=== PATIENT | female | born 1995 | race Caucasian/White ===

== ENCOUNTER 2016-09-16 06:11 | Emergency (ER) | payer MEDICAID, OTHER ==
[~2016-09-16] VITALS: Ht 162.6 cm; Wt 98.9 kg
[2016-09-16 06:20] VITALS: BP_SYST 135
--- NOTE | 2016-09-16 06:20 | NUR ---
Patient to ER bed 7 to gown for evaluation. Side rails up. Report given to BIANKA FREED.
--- NOTE | 2016-09-16 06:30 | NUR ---
Patient is stable in bedside. Patient is having vaginal bleeding today, burning with urination and abdominal pressure in the umbilical region. Pain 5/10. Patient states that she is 12 weeks . No other complaints/injuries per patient or as noted.
--- NOTE | 2016-09-16 07:17 | NUR ---
Patient endorsed to BIANKA Valdez
[2016-09-16 07:18] LABS: BILIRUBIN,URINE NEGATIVE (NEGATIVE); BLOOD, URINE NEGATIVE (NEGATIVE); CLARITY/URINE HAZY (CLEAR); COLOR,URINE YELLOW (YELLOW); GLUCOSE,URINE NEGATIVE (NEGATIVE); KETONES,URINE NEGATIVE (NEGATIVE); LEUKOCYTE ESTERASE ,URINE 2+ (NEGATIVE); NITRITE, URINE NEGATIVE (NEGATIVE); PROTEIN URINE NEGATIVE (NEGATIVE); UROBILINOGEN,URINE 0.2 (0.2-1.0)
[2016-09-16 07:20] LABS: BASOPHILS % (AUTO) 0.3 % (0.0-2.0); EOSINOPHILS # (AUTO) 0.1 K/uL (0.0-0.4); EOSINOPHILS % (AUTO) 1.2 % (0.0-4.0); HEMOGLOBIN 11.7 g/dL (12.0-16.0); LYMPHOCYTES # (AUTO) 1.5 K/uL (1.0-5.5); LYMPHOCYTES % (AUTO) 19.5 % (20.5-51.5); MEAN CORPUSCULAR HEMOGLOBIN 29 pg (27-31); MEAN CORPUSCULAR HGB CONC 35 % (32-36); MEAN CORPUSCULAR VOLUME 85 fL (79.0-98.0); MONOCYTES # (AUTO) 0.6 K/uL (0.0-1.0); MONOCYTES % (AUTO) 7.4 % (1.7-9.3); NEUTROPHILS # (AUTO) 5.7 K/uL (1.8-7.7); NEUTROPHILS % (AUTO) 71.6 % (40.0-70.0); PLATELET COUNT (AUTO) 216 K/uL (130-430); RED BLOOD CELL COUNT(AUTO) 4.02 MIL/uL (4.2-6.2); RED CELL DISTRIBUTION WIDTH 13.6 % (9.0-15.0); WHITE BLOOD COUNT (AUTO) 7.9 K/uL (4.8-10.8)
[2016-09-16 07:26] LABS: CALCIUM 9.2 mg/dL (8.4-11.0); CREATININE 0.63 mg/dL (0.55-1.30); POTASSIUM 3.9 mmol/L (3.5-5.1)
[2016-09-16 07:29] LABS: BACTERIA,URINE MANY /HPF (None Seen); MUCUS,URINE None Seen /LPF (None Seen)
[2016-09-16 07:30] LABS: INR 0.9 (0.8-1.2); PROTHROMBIN TIME 10.3 SECS (9.5-12.5)
--- NOTE | 2016-09-16 07:45 | NUR ---
Pelvic exam performed by Dr. Bell with self at bedside for entire examination. Patient tolerated procedure well. Patient assisted to position of comfort after examination.
[2016-09-16 07:54] LABS: ALBUMIN 3.3 g/dL (3.4-4.8); TOTAL BILIRUBIN 0.2 mg/dL (0.0-1.0); TOTAL PROTEIN, SERUM 7.5 g/dL (6.4-8.3)
--- NOTE | 2016-09-16 08:07 | NUR ---
Off unit for US.
[2016-09-16] MEDS ORDERED: RHO(D) IMMUNE GLOBULIN/MALTOSE 1500 UNITS/1.3 ML (WINHRO) INJ ONE (09:45)
--- NOTE | 2016-09-16 09:45 | NUR ---
Dr. Kendrick spoke with Dr. Hamilton regarding Rhogam adminstration, Dr. Aldana's agreed should give. Waiting for rhogam from blood bank, form sent.
--- NOTE | 2016-09-16 10:10 | NUR ---
Speaking with visitor, stable condition.
--- NOTE | 2016-09-16 11:00 | NUR ---
Patient in stable condition, no shortness of breath per patient or noted. No new/unusual symptoms per patient or noted. Speaking with visitor. Vital signs within normal limit-see admin sheet placed in chart.
--- NOTE | 2016-09-16 11:37 | NUR ---
Note undone in EDM - 09/16/16 at 1142 by [email or web address] Patient given written and verbal discharge instructions and verbalizes understanding. ER discussed with patient the results and treatment provided.Patient in stable condition. ID arm band removed. Rx of Macrobid given. Patient educated on pain management and to follow up with PMD and obgyn within 2 days. Opportunity for questions provided and answered.
[2016-09-16 11:40] VITALS: BP_SYST 116
--- NOTE | 2016-09-16 11:40 | NUR ---
Patient given written and verbal discharge instructions and verbalizes understanding. ER MD discussed with patient the results and treatment provided.Patient in stable condition. ID arm band removed. Rx of Macrobid given. Patient educated on pain management and to follow up with PMD and obgyn within 2 days. Opportunity for questions provided and answered.
== END 2016-09-16 11:40 | disposition home or self-care (01) ==
LOC: SED 06:11
DX: O20.0 Threatened abortion (principal); O23.41 Unspecified infection of urinary tract in pregnancy, first trimester; Z3A.13 13 weeks gestation of pregnancy
CPT/HCPCS: 36415; 76805; 80053; 81000; 81025; 84702; 85025; 85610; 86900; 86901; 87086; 96372; 99285; J2790; J2792

== ENCOUNTER 2018-04-28 10:11 | Emergency (ER) | payer MEDICAID ==
[~2018-04-28] VITALS: Ht 162.6 cm; Wt 99.8 kg
[2018-04-28 10:28] VITALS: BP_SYST 122
[2018-04-28 12:30] LABS: BASOPHILS # (AUTO) 0.1 K/uL (0.0-0.2); BASOPHILS % (AUTO) 1.1 % (0.0-2.0); EOSINOPHILS # (AUTO) 0.1 K/uL (0.0-0.4); HEMATOCRIT 40.2 % (36-48); HEMOGLOBIN 12.5 g/dL (12.0-16.0); LYMPHOCYTES # (AUTO) 1.8 K/uL (1.0-5.5); LYMPHOCYTES % (AUTO) 21.9 % (20.5-51.5); MEAN CORPUSCULAR HEMOGLOBIN 26 pg (27-31); MEAN CORPUSCULAR HGB CONC 31 % (32-36); MEAN CORPUSCULAR VOLUME 85 fL (79.0-98.0); MONOCYTES # (AUTO) 0.5 K/uL (0.0-1.0); MONOCYTES % (AUTO) 6.5 % (1.7-9.3); NEUTROPHILS # (AUTO) 5.8 K/uL (1.8-7.7); NEUTROPHILS % (AUTO) 69.5 % (40.0-70.0); PLATELET COUNT (AUTO) 290 K/uL (130-430); RED BLOOD CELL COUNT(AUTO) 4.73 MIL/uL (4.2-6.2); RED CELL DISTRIBUTION WIDTH 12.7 % (9.0-15.0); WHITE BLOOD COUNT (AUTO) 8.3 K/uL (4.8-10.8)
[2018-04-28 12:52] LABS: CALCIUM 9.3 mg/dL (8.4-11.0); CREATININE 0.82 mg/dL (0.55-1.30); POTASSIUM 3.8 mmol/L (3.5-5.1)
[2018-04-28 14:38] VITALS: BP_SYST 124
== END 2018-04-28 14:38 | disposition home or self-care (01) ==
LOC: SED 10:11
DX: N93.8 Other specified abnormal uterine and vaginal bleeding (principal); F32.9 Major depressive disorder, single episode, unspecified
CPT/HCPCS: 36415; 76830-TC; 76857; 80048; 81025; 85025; 99284

== ENCOUNTER 2019-01-25 20:14 | Emergency (ER) | payer MEDICAID ==
[~2019-01-25] VITALS: Ht 162.6 cm; Wt 100.7 kg
[2019-01-25 20:18] VITALS: BP_SYST 143
[2019-01-25] MEDS ORDERED: NACL 0.9% 1,000 ML IV ONE (21:30)
[2019-01-25 21:40] LABS: BILIRUBIN,URINE NEGATIVE (NEGATIVE); BLOOD, URINE NEGATIVE (NEGATIVE); CLARITY/URINE CLEAR (CLEAR); COLOR,URINE YELLOW (YELLOW); GLUCOSE,URINE NEGATIVE (NEGATIVE); KETONES,URINE NEGATIVE (NEGATIVE); LEUKOCYTE ESTERASE ,URINE NEGATIVE (NEGATIVE); NITRITE, URINE NEGATIVE (NEGATIVE); PROTEIN URINE NEGATIVE (NEGATIVE)
[2019-01-25 22:19] LABS: BASOPHILS # (AUTO) 0.1 K/uL (0.0-0.2); BASOPHILS % (AUTO) 0.7 % (0.0-2.0); EOSINOPHILS # (AUTO) 0.1 K/uL (0.0-0.4); EOSINOPHILS % (AUTO) 0.5 % (0.0-4.0); HEMATOCRIT 35.7 % (36-48); LYMPHOCYTES % (AUTO) 14.8 % (20.5-51.5); MEAN CORPUSCULAR HEMOGLOBIN 29 pg (27-31); MEAN CORPUSCULAR HGB CONC 34 % (32-36); MEAN CORPUSCULAR VOLUME 86 fL (79.0-98.0); MONOCYTES # (AUTO) 0.7 K/uL (0.0-1.0); MONOCYTES % (AUTO) 4.8 % (1.7-9.3); NEUTROPHILS # (AUTO) 10.8 K/uL (1.8-7.7); NEUTROPHILS % (AUTO) 79.2 % (40.0-70.0); PLATELET COUNT (AUTO) 251 K/uL (130-430); RED BLOOD CELL COUNT(AUTO) 4.16 MIL/uL (4.2-6.2); WHITE BLOOD COUNT (AUTO) 13.7 K/uL (4.8-10.8)
[2019-01-25 22:42] LABS: CREATININE 0.64 mg/dL (0.55-1.30); POTASSIUM 3.5 mmol/L (3.5-5.1)
[2019-01-25 22:49] LABS: ALBUMIN 3.7 g/dL (3.4-4.8); TOTAL BILIRUBIN 0.3 mg/dL (0.0-1.0)
[2019-01-25 23:47] VITALS: BP_SYST 132
== END 2019-01-25 23:47 | disposition home or self-care (01) ==
LOC: SED 20:14
DX: O26.891 Other specified pregnancy related conditions, first trimester (principal); R55 Syncope and collapse; R03.0 Elevated blood-pressure reading, without diagnosis of hypertension; Z3A.12 12 weeks gestation of pregnancy
CPT/HCPCS: 36415; 76801; 76817; 80053; 81003; 81025; 85025; 93005; 99284; J7030

== ENCOUNTER 2019-07-25 12:07 | Observation (INO) | payer MEDICAID ==
[~2019-07-25] VITALS: Ht 162.6 cm; Wt 108.9 kg
== END 2019-07-25 13:10 | disposition home or self-care (01) ==
LOC: SPU 12:07
PROVIDERS: ADMIT Specialist; ATTEND Specialist
DX: O62.9 Abnormality of forces of labor, unspecified (principal); Z3A.39 39 weeks gestation of pregnancy
CPT/HCPCS: 81002; G0378

== ENCOUNTER 2019-07-29 16:30 | Observation (INO) | payer MEDICAID ==
[~2019-07-29] VITALS: Ht 162.6 cm; Wt 108.9 kg
[2019-07-29] MEDS ORDERED: TERBUTALINE SULFATE 1 MG/ML VIAL SUBCUT ONE (17:45)
[2019-07-29 18:35] LABS: BASOPHILS % (AUTO) 0.4 % (0.0-2.0); EOSINOPHILS % (AUTO) 0.5 % (0.0-4.0); HEMATOCRIT 33.3 % (36-48); HEMOGLOBIN 11.1 g/dL (12.0-16.0); LYMPHOCYTES # (AUTO) 1.3 K/uL (1.0-5.5); LYMPHOCYTES % (AUTO) 12.1 % (20.5-51.5); MEAN CORPUSCULAR HEMOGLOBIN 27 pg (27-31); MEAN CORPUSCULAR HGB CONC 33 % (32-36); MEAN CORPUSCULAR VOLUME 80 fL (79.0-98.0); MONOCYTES # (AUTO) 0.9 K/uL (0.0-1.0); MONOCYTES % (AUTO) 8.1 % (1.7-9.3); NEUTROPHILS # (AUTO) 8.4 K/uL (1.8-7.7); NEUTROPHILS % (AUTO) 78.9 % (40.0-70.0); PLATELET COUNT (AUTO) 228 K/uL (130-430); RED BLOOD CELL COUNT(AUTO) 4.15 MIL/uL (4.2-6.2); RED CELL DISTRIBUTION WIDTH 15.9 % (9.0-15.0); WHITE BLOOD COUNT (AUTO) 10.7 K/uL (4.8-10.8)
[2019-07-29 19:59] LABS: BARBITURATE, URINE NEGATIVE (NEG <=200); BENZODIAZEPINE, URINE NEGATIVE (NEG <=150); CANNABINOID, URINE NEGATIVE (NEG <=50); COCAINE, URINE NEGATIVE (NEG <=150); METHAMPHETAMINES SCREEN,URINE NEGATIVE (NEG <=500); OPIATE, URINE NEGATIVE (NEG <=100); PHENCYCLIDINE SCREEN,URINE NEGATIVE (NEG <=25); UR TRICYCLIC ANTIDEPRESSANTS NEGATIVE (NEG <=300); URINE AMPHETAMINE NEGATIVE (NEG <=500); URINE METHADONE NEGATIVE (NEG <=200); URINE OXYCODONE SCREEN NEGATIVE (NEG <=100); URINE PROPOXYPHENE SCREEN NEGATIVE (NEG <=300)
[2019-07-29 20:58] LABS: BILIRUBIN,URINE NEGATIVE (NEGATIVE); BLOOD, URINE NEGATIVE (NEGATIVE); CLARITY/URINE HAZY (CLEAR); COLOR,URINE YELLOW (YELLOW); GLUCOSE,URINE NEGATIVE (NEGATIVE); KETONES,URINE NEGATIVE (NEGATIVE); LEUKOCYTE ESTERASE ,URINE TRACE (NEGATIVE); NITRITE, URINE NEGATIVE (NEGATIVE); PROTEIN URINE NEGATIVE (NEGATIVE); UROBILINOGEN,URINE 0.2 (0.2-1.0)
[2019-07-29 21:10] LABS: BACTERIA,URINE None Seen /HPF (None Seen); RBC,URINE NONE SEEN /HPF (0-3)
[2019-07-29 21:11] LABS: MUCUS,URINE 1+ /LPF (None Seen)
[2019-07-31 08:13] LABS: HEPATITIS B SURFACE AG Negative (Negative)
[2019-07-31 12:35] LABS: RUBELLA AB, IgG 0.94 index (Immune >0.99)
== END 2019-07-29 21:40 | disposition home or self-care (01) ==
LOC: SPU 16:30
PROVIDERS: ADMIT Obstetrics & Gynecology; ATTEND Obstetrics & Gynecology
DX: O62.9 Abnormality of forces of labor, unspecified (principal); Z3A.39 39 weeks gestation of pregnancy
CPT/HCPCS: 36415; 76805; 80307; 81000; 82947; 85025; 86592; 86762; 86886; 86900; 86901; 87081; 87340; 87536; G0378

== ENCOUNTER 2019-08-05 21:42 | Inpatient (IN) | payer MEDICAID ==
[~2019-08-05] VITALS: Ht 162.6 cm; Wt 108.9 kg
[~2019-08-05 21:42] MED LIST: LR 1,000 ML IV.SOLN IV ONE; MIDAZOLAM HCL 5 MG/5 ML VIAL IVP ONE; MORPHINE SULFATE 10 MG/ML VIAL IVP ONE; NS IRRIG SOLN 1000 ML IR ONE; ONDANSETRON HCL 4 MG/2 ML VIAL IVP ONE; OXYTOCIN 10 UNIT/ML VIAL IV ONE
[2019-08-05] MEDS ORDERED: FLU VACC QS2019-20 36MOS UP/PF 60 MCG/0.5 ML SYRINGE I.M. PRN (23:00)
[2019-08-05] MEDS ORDERED: OXYTOCIN/0.9 % SODIUM CHLORIDE 1,000 ML IV SCH (23:06)
[2019-08-05] MEDS ORDERED: MORPHINE 4 MG/ML INJ. SYRINGE IVP PRN (23:15)
[2019-08-05 23:41] VITALS: BP_SYST 129
[2019-08-06] MEDS ORDERED: AMPICILLIN SODIUM 2 GM in NS 100 ML IV ONE ×2
[2019-08-06] MEDS ORDERED: AMPICILLIN SODIUM 2 GM VIAL ONE (00:09)
[2019-08-06 00:20] LABS: BASOPHILS # (AUTO) 0.1 K/uL (0.0-0.2); BASOPHILS % (AUTO) 0.5 % (0.0-2.0); EOSINOPHILS # (AUTO) 0.1 K/uL (0.0-0.4); EOSINOPHILS % (AUTO) 0.8 % (0.0-4.0); HEMATOCRIT 33.6 % (36-48); HEMOGLOBIN 11.2 g/dL (12.0-16.0); LYMPHOCYTES # (AUTO) 1.5 K/uL (1.0-5.5); LYMPHOCYTES % (AUTO) 14.4 % (20.5-51.5); MEAN CORPUSCULAR HEMOGLOBIN 27 pg (27-31); MEAN CORPUSCULAR HGB CONC 33 % (32-36); MEAN CORPUSCULAR VOLUME 80 fL (79.0-98.0); MONOCYTES # (AUTO) 0.9 K/uL (0.0-1.0); MONOCYTES % (AUTO) 8.5 % (1.7-9.3); NEUTROPHILS # (AUTO) 7.7 K/uL (1.8-7.7); NEUTROPHILS % (AUTO) 75.8 % (40.0-70.0); PLATELET COUNT (AUTO) 207 K/uL (130-430); RED BLOOD CELL COUNT(AUTO) 4.19 MIL/uL (4.2-6.2); RED CELL DISTRIBUTION WIDTH 16.2 % (9.0-15.0); WHITE BLOOD COUNT (AUTO) 10.1 K/uL (4.8-10.8)
[2019-08-06] MEDS ORDERED: DINOPROSTONE 10 MG SUPP VG ONE (00:30)
[2019-08-06 00:31] LABS: BARBITURATE, URINE NEGATIVE (NEG <=200); BENZODIAZEPINE, URINE NEGATIVE (NEG <=150); CANNABINOID, URINE NEGATIVE (NEG <=50); COCAINE, URINE NEGATIVE (NEG <=150); METHAMPHETAMINES SCREEN,URINE NEGATIVE (NEG <=500); OPIATE, URINE NEGATIVE (NEG <=100); PHENCYCLIDINE SCREEN,URINE NEGATIVE (NEG <=25); UR TRICYCLIC ANTIDEPRESSANTS NEGATIVE (NEG <=300); URINE AMPHETAMINE NEGATIVE (NEG <=500); URINE METHADONE NEGATIVE (NEG <=200); URINE OXYCODONE SCREEN NEGATIVE (NEG <=100); URINE PROPOXYPHENE SCREEN NEGATIVE (NEG <=300)
[2019-08-06] MEDS ORDERED: AMPICILLIN SODIUM 1 GM VIAL ONE (03:45)
[2019-08-06] MEDS ORDERED: AMPICILLIN SODIUM 1 GM in NS 50 ML IV SCH (04:00)
[2019-08-06] MEDS: LR 1,000 ML IV SCH ×2 (05:30)
[2019-08-06] MEDS: OXYTOCIN/0.9 % SODIUM CHLORIDE 1,000 ML IV SCH ×3 (06:00→18:11)
[2019-08-06] MEDS ORDERED: MORPHINE SULFATE 10 MG/ML VIAL IVP PRN (08:30)
[2019-08-06] MEDS ORDERED: ROPIVACAINE HCL/PF 0.2% 100 ML ONE (09:05)
[2019-08-06] MEDS ORDERED: fentaNYL CITRATE/PF 100 MCG/2 ML AMP ONE (09:05)
[2019-08-06] MEDS ORDERED: FENT2mCg/mL-ROPIVA0.2%/NS EPID 200 ML EP SCH (09:30)
[2019-08-06] MEDS ORDERED: DIPHENHYDRAMINE INJ 50 MG/ML VIAL IVP PRN (09:30)
[2019-08-06] MEDS ORDERED: ONDANSETRON HCL 4 MG/2 ML VIAL IVP PRN ×2 (09:30→13:15)
[2019-08-06] MEDS ORDERED: ACETAMINOPHEN 325 MG TABLET PO PRN (10:30)
[2019-08-06 11:01] LABS: BASOPHILS % (AUTO) 0.4 % (0.0-2.0); EOSINOPHILS # (AUTO) 0.1 K/uL (0.0-0.4); EOSINOPHILS % (AUTO) 0.6 % (0.0-4.0); HEMATOCRIT 30.1 % (36-48); HEMOGLOBIN 9.8 g/dL (12.0-16.0); LYMPHOCYTES # (AUTO) 0.9 K/uL (1.0-5.5); MEAN CORPUSCULAR HEMOGLOBIN 26 pg (27-31); MEAN CORPUSCULAR HGB CONC 33 % (32-36); MEAN CORPUSCULAR VOLUME 80 fL (79.0-98.0); MONOCYTES # (AUTO) 0.6 K/uL (0.0-1.0); MONOCYTES % (AUTO) 7.5 % (1.7-9.3); NEUTROPHILS # (AUTO) 6.4 K/uL (1.8-7.7); NEUTROPHILS % (AUTO) 80.5 % (40.0-70.0); PLATELET COUNT (AUTO) 174 K/uL (130-430); RED BLOOD CELL COUNT(AUTO) 3.75 MIL/uL (4.2-6.2); RED CELL DISTRIBUTION WIDTH 16.2 % (9.0-15.0); WHITE BLOOD COUNT (AUTO) 7.9 K/uL (4.8-10.8)
[2019-08-06 11:20] LABS: ALBUMIN 2.2 g/dL (3.4-4.8); CALCIUM 7.7 mg/dL (8.4-11.0); CREATININE 0.57 mg/dL (0.55-1.30); POTASSIUM 3.4 mmol/L (3.5-5.1); TOTAL BILIRUBIN 0.3 mg/dL (0.0-1.0)
[2019-08-06 12:32] LABS: BILIRUBIN,URINE NEGATIVE (NEGATIVE); BLOOD, URINE 3+ (NEGATIVE); CLARITY/URINE CLEAR (CLEAR); COLOR,URINE YELLOW (YELLOW); GLUCOSE,URINE NEGATIVE (NEGATIVE); KETONES,URINE NEGATIVE (NEGATIVE); LEUKOCYTE ESTERASE ,URINE NEGATIVE (NEGATIVE); NITRITE, URINE NEGATIVE (NEGATIVE); PROTEIN URINE NEGATIVE (NEGATIVE); UROBILINOGEN,URINE 0.2 (0.2-1.0)
[2019-08-06] MEDS ORDERED: CEFAZOLIN 2 GM IVPB PREMIX 50 ML IV ONE ×2 (12:42→16:00)
[2019-08-06 12:56] LABS: BACTERIA,URINE RARE /HPF (None Seen); RBC,URINE 20-50 /HPF (0-3); WBC,URINE 0-3 /HPF (0-3)
[2019-08-06 13:03] VITALS: BP_SYST 121
[2019-08-06] MEDS ORDERED: DIPHENHYDRAMINE INJ 50 MG/ML VIAL IM PRN (13:15)
[2019-08-06] MEDS ORDERED: KETOROLAC TROMETHAMINE 60 MG/2 ML VIAL IM PRN (13:15)
[2019-08-06] MEDS ORDERED: NALOXONE HCL 0.4 MG/ML AMP (NARCAN) IVP PRN (13:15)
[2019-08-06] MEDS ORDERED: MORPHINE SULFATE 10MG/10ML PF AMP EP SCH (13:15)
[2019-08-06] MEDS ORDERED: OXYTOCIN/0.9 % SODIUM CHLORIDE 1,000 ML IV ONE (15:55)
[2019-08-06] MEDS ORDERED: LR 1,000 ML IV SCH (15:55)
[2019-08-06] MEDS ORDERED: MEASLES,MUMPS&RUBELLA VACC/PF 12500 UNIT/0.5 ML VIAL SUBQ PRN (16:00)
[2019-08-06] MEDS ORDERED: SENNOSIDES/DOCUSATE SODIUM 1 TAB TABLET(SENOKOT-S) PO PRN (16:00)
[2019-08-06] MEDS ORDERED: BISACODYL 10 MG/SUPPOSITORY RC PRN (16:00)
[2019-08-06] MEDS ORDERED: LANOLIN 7 GM OINT. TP PRN (16:00)
[2019-08-06] MEDS ORDERED: DIPH-TET-PERTUS Vaccine 0.5 ML VIAL (ADACEL) I.M. PRN (16:00)
[2019-08-06] MEDS ORDERED: RHO(D) IMMUNE GLOBULIN/MALTOSE 1500 UNITS/1.3 ML (WINHRO) IM PRN (16:00)
[2019-08-06] MEDS ORDERED: TEMAZEPAM 15 MG CAPSULE PO PRN (21:00)
[2019-08-07] MEDS ORDERED: CEFAZOLIN 1 GM IVPB PREMIX 50 ML IV ONE ×2 (00:03→06:13)
[2019-08-07] MEDS: KETOROLAC TROMETHAMINE 30 MG VIAL IVP SCH ×4 (00:40→17:48)
[2019-08-07] MEDS: CEFAZOLIN 1 GM IVPB PREMIX 50 ML IV SCH ×3 (00:40→12:10)
[2019-08-07 07:35] LABS: BASOPHILS % (AUTO) 0.2 % (0.0-2.0); EOSINOPHILS % (AUTO) 0.2 % (0.0-4.0); HEMATOCRIT 33.2 % (36-48); HEMOGLOBIN 10.8 g/dL (12.0-16.0); LYMPHOCYTES # (AUTO) 0.9 K/uL (1.0-5.5); LYMPHOCYTES % (AUTO) 8.4 % (20.5-51.5); MEAN CORPUSCULAR HEMOGLOBIN 27 pg (27-31); MEAN CORPUSCULAR HGB CONC 33 % (32-36); MEAN CORPUSCULAR VOLUME 81 fL (79.0-98.0); MONOCYTES # (AUTO) 0.7 K/uL (0.0-1.0); MONOCYTES % (AUTO) 6.5 % (1.7-9.3); NEUTROPHILS # (AUTO) 9.2 K/uL (1.8-7.7); NEUTROPHILS % (AUTO) 84.7 % (40.0-70.0); PLATELET COUNT (AUTO) 193 K/uL (130-430); RED BLOOD CELL COUNT(AUTO) 4.09 MIL/uL (4.2-6.2); RED CELL DISTRIBUTION WIDTH 16.4 % (9.0-15.0); WHITE BLOOD COUNT (AUTO) 10.9 K/uL (4.8-10.8)
[2019-08-07] MEDS: DOCUSATE SODIUM 100 MG CAPSULE PO PRN (11:34)
[2019-08-07] MEDS: SIMETHICONE 80 MG TAB.CHEW PO PRN ×2 (11:34→17:48)
--- NOTE | 2019-08-07 16:11 | NUR ---
Dietitian Recommendations * Recommend continuing regular diet * RD provided [address] Please refer to Nutrition Assessment for details. Addendum: 08/07/19 at [address] Amended: Links added.
[2019-08-07] MEDS ORDERED: OXYCODONE/ACETAMINOPHEN 5-325 TABLET PO PRN (23:30)
[2019-08-07] MEDS: IBUPROFEN 600 MG TABLET PO SCH (23:34)
[2019-08-08] MEDS: DOCUSATE SODIUM 100 MG CAPSULE PO PRN ×2 (05:59→12:06)
[2019-08-08] MEDS: IBUPROFEN 600 MG TABLET PO SCH ×3 (05:59→17:55)
[2019-08-08] MEDS: SIMETHICONE 80 MG TAB.CHEW PO PRN (12:06)
[2019-08-08] MEDS: OXYCODONE/ACETAMINOPHEN *10*mg/325 mg TABLET PO PRN (21:58)
[2019-08-09] MEDS: SIMETHICONE 80 MG TAB.CHEW PO PRN ×4 (01:01→17:39)
[2019-08-09] MEDS: OXYCODONE/ACETAMINOPHEN *10*mg/325 mg TABLET PO PRN ×2 (04:04→23:53)
[2019-08-09] MEDS: IBUPROFEN 600 MG TABLET PO SCH ×3 (05:48→17:39)
[2019-08-09] MEDS: DOCUSATE SODIUM 100 MG CAPSULE PO PRN (12:15)
[2019-08-09] MEDS ORDERED: MILK OF MAGNESIA 30 ML UDC PO ONE (13:15)
[2019-08-09] MEDS ORDERED: BACITRACIN 1 GM OINT TP ONE (21:02)
[2019-08-10] MEDS: DOCUSATE SODIUM 100 MG CAPSULE PO PRN (00:01)
[2019-08-10] MEDS: IBUPROFEN 600 MG TABLET PO SCH ×4 (00:01→17:34)
[2019-08-10] MEDS: OXYCODONE/ACETAMINOPHEN *10*mg/325 mg TABLET PO PRN ×2 (05:45→18:09)
[2019-08-10] MEDS ORDERED: FLU VACC QS2019-20 36MOS UP/PF 60 MCG/0.5 ML SYRINGE I.M. PRN (19:06)
== END 2019-08-10 20:57 | disposition home or self-care (01) | DRG 540 ==
LOC: SPU 21:42 → OBSVTOIN 21:42 → SPU 08-06 14:00
PROVIDERS: ADMIT Obstetrics & Gynecology; ATTEND Obstetrics & Gynecology
PROC: 10D00Z1 Extraction of Products of Conception, Low, Open Approach (ICD-10-PCS; principal; 2019-08-06 12:15)
PROC: 3E0234Z Introduction of Serum, Toxoid and Vaccine into Muscle, Percutaneous Approach (ICD-10-PCS; 2019-08-07)
DX: O62.2 Other uterine inertia (principal); E66.01 Morbid (severe) obesity due to excess calories; O76 Abnormality in fetal heart rate and rhythm complicating labor and delivery; O77.0 Labor and delivery complicated by meconium in amniotic fluid; O99.824 Streptococcus B carrier state complicating childbirth; O99.214 Obesity complicating childbirth; Z37.0 Single live birth; Z3A.40 40 weeks gestation of pregnancy
CPT/HCPCS: 36415; 80053; 80307; 81000-TC; 85025; 86592; 86886; 86900; 86901; 90715; J0290; J0690; J1885; J2250; J2270; J2405; J2590; J2790; J2795; J3010; J7120